=== PATIENT | female | born 1945 | race Caucasian/White ===

== ENCOUNTER 2016-09-03 13:10 | Outpatient (CLI) | payer MEDICARE, OTHER ==
[2015-11-17 10:38] VITALS: BP 141/74
== END 2016-09-03 13:11 ==
LOC: POD 13:10
PROVIDERS: ATTEND Podiatrist
DX: M20.41 Other hammer toe(s) (acquired), right foot (principal); L84 Corns and callosities
CPT/HCPCS: G0463

== ENCOUNTER 2016-11-19 10:27 | Outpatient (CLI) | payer MEDICARE, OTHER ==
[2015-11-17 10:38] VITALS: BP 141/74
--- NOTE | 2016-11-19 13:57 | Diagnostic Imaging Report ---
ROXANE GARRISON [facility] [address] [facility].[address] [address] Report Submission Date: Nov 19, 2016 12:41:58 PM CDT Patient Study Name: POLO TOM Date: Nov 19, 2016 11:08:48 AM CDT Modality Type: CR Gender: F Description: PELVIS : 41 Institution: [facility] Physician: ROXANE GARRISON Examination: Plain film pelvis History: Pelvic discomfort Comparison exams: None available Findings: Single view of the pelvis demonstrates normal cortical margins. Mild degenerative changes of the hip articulations bilaterally. Lumbar degenerative changes. Sacroiliac joint narrowing and degenerative changes. No fracture. No soft tissue abnormality. Impression: Scattered degenerative changes. No fracture. Electronically signed on Nov 19, 2016 12:41:58 PM CDT by: Jesus DURAND
--- NOTE | 2016-11-19 13:57 | Diagnostic Imaging Report ---
ROXANE GARRISON [facility] [address] [address] Report Submission Date: Nov 19, 2016 12:24:13 PM CDT Patient Study Name: POLO TOM Date: Nov 19, 2016 11:13:35 AM CDT Modality Type: CR Gender: F Description: SPINE : 41 Institution: [facility] Physician: ROXANE GARRISON Examination: Plain film lumbar spine History: Low back discomfort Comparison exam: None available Findings: 3 views of the lumbar spine demonstrate normal height. Disc space narrowing from L1/2 through L5/S1. Listhesis of L5 on S1 approximately 5%. No anterior compression. Osteopenia. Slight curvature to the left on the anterior posterior film. Atherosclerotic disease involving the aortoiliac vessel. Impression: Lumbar degenerative changes and curvature. No compression deformity. Electronically signed on Nov 19, 2016 12:24:13 PM CDT by: Jesus DURAND
--- NOTE | 2016-11-19 13:58 | Diagnostic Imaging Report ---
ROXANE GARRISON [facility] [address] [facility].[address] [address] Report Submission Date: Nov 19, 2016 12:30:57 PM CDT Patient Study Name: POLO TOM Date: Nov 19, 2016 10:46:06 AM CDT Modality Type: US Gender: F Description: PELVIS MASS DIAGNOSIS : 41 Institution: [facility] Physician: ROXANE GARRISON Examination: Ultrasound pelvis History: Right lower pelvic discomfort Comparison exams: None available Findings: Sonographic evaluation of the pelvis demonstrate a uterus measuring 6.1 x 3.2 x 3.5 cm. Myometrium without gross irregularity. Endometrial complex measures 3.5 mm maximally. Small, trace amount of fluid within the upper endometrial canal. No fluid posterior to the uterus Axilla regions without mass. Ovaries not visualized Impression: Trace amount of fluid within the endometrial canal: non specific finding. Myometrium not thickened. No pelvic mass. Given patient's symptoms, consider CT Abdomen/pelvis to further evaluate Electronically signed on Nov 19, 2016 12:30:57 PM CDT by: Jesus DURAND
== END 2016-11-19 10:30 ==
LOC: RAD 10:27
PROVIDERS: ATTEND Family Medicine
DX: R10.2 Pelvic and perineal pain (principal); R35.8 Other polyuria; M54.5 Low back pain
CPT/HCPCS: 72100; 72170; 76830

== ENCOUNTER 2016-11-25 08:34 | Outpatient (CLI) | payer MEDICARE, OTHER ==
[2015-11-17 10:38] VITALS: BP 141/74
--- NOTE | 2016-11-26 04:32 | Diagnostic Imaging Report ---
ROXANE GARRISON~ [facility] [address] [facility] [address] [place], [place]. [address] ~ ~ ~ ~ Report Submission Date: Nov 25, 2016 4:25:32 PM CDT Patient ~ Study Name: POLO TOM ~ Date: Nov 25, 2016 9:14:42 AM CDT ~ Modality Type: CT\SR Gender: F ~ Description: CT ABD & PELVIS W/ CON : 41 ~ Institution: [facility] Physician: ROXANE GARRISON ~ ~ ~ ~ Examination: CT Abdomen/pelvis History: Lower right pelvic discomfort Comparison exams: None available Technique: CT Abdomen/pelvis with IV protocol.~ Findings:~ Liver, spleen, adrenals, pancreas, gallbladder are without gross irregularity.~ No abnormal enhancement. Abdominal aorta demonstrates peripheral atherosclerotic disease and mural thickening. Infrarenal prominence to 2.6 cm. No periaortic adenopathy. Bowel unopacified limiting evaluation. No abnormal dilation. Stool within the large bowel limiting sensitivity. No mesenteric inflammatory changes or free fluid. Uterus not enlarged. ~No adnexal mass or pelvic sidewall adenopathy. Hiatal hernia. Osseous structures demonstrate degenerative changes.. Lung bases demonstrate mild parenchymal scarring. Impression: No evidence for abdominal mass or acute appearing inflammatory process. No evidence for pelvic mass or lesion. ~ Electronically signed on Nov 25, 2016 4:25:32 PM CDT by: Jesus DURAND
== END 2016-11-25 08:35 ==
LOC: RAD 08:34
PROVIDERS: ATTEND Family Medicine
DX: R10.2 Pelvic and perineal pain (principal); R93.8 Abnormal findings on diagnostic imaging of other specified body structures
CPT/HCPCS: 74177; Q9966

== ENCOUNTER 2017-02-15 12:43 | Outpatient (CLI) | payer MEDICARE, OTHER ==
[2015-11-17 10:38] VITALS: BP 141/74
== END 2017-02-15 12:44 ==
LOC: POD 12:43
PROVIDERS: ATTEND Podiatrist
DX: B35.1 Tinea unguium (principal); M79.674 Pain in right toe(s); M79.675 Pain in left toe(s)
CPT/HCPCS: 11721; G0463

== ENCOUNTER 2017-08-16 12:32 | Outpatient (CLI) | payer MEDICARE, OTHER ==
[2015-11-17 10:38] VITALS: BP 141/74
== END 2017-08-16 12:40 ==
LOC: POD 12:32
PROVIDERS: ATTEND Podiatrist
DX: B35.1 Tinea unguium (principal); M79.674 Pain in right toe(s); M79.675 Pain in left toe(s)
CPT/HCPCS: 11721; G0463